=== PATIENT | female | born 2000 | race Caucasian/White ===

== ENCOUNTER 2025-02-12 09:45 | Outpatient (CLI) | payer BC ==
[2025-02-12] MEDS ORDERED: Iopamidol 370 76% 100 ML VIAL ONE (10:35)
== END 2025-02-12 09:46 | disposition home or self-care (01) ==
LOC: CSHCT 09:45
PROVIDERS: ATTEND Physician Assistant Medical
DX: R10.9 Unspecified abdominal pain (principal); R19.8 Other specified symptoms and signs involving the digestive system and abdomen; R63.4 Abnormal weight loss; R11.10 Vomiting, unspecified; K59.00 Constipation, unspecified; Q51.28 Other and unspecified doubling of uterus
CPT/HCPCS: 74177